=== PATIENT | male | born 1975 | race Caucasian/White ===

== ENCOUNTER 2017-06-01 10:21 | Emergency (ER) | payer MEDICARE ==
[2017-06-01 10:40] VITALS: TEMP 96.3; O2SAT 97
--- NOTE | 2017-06-01 10:56 | ED.PDOC ---
History of Present Illness - General Chief Complaint: Problem Stated Complaint: Unable to void, R low back discomfort Time Seen by Provider: 06/01/17 10:38 Source: patient Exam Limitations: clinical condition - hronic limitations with communication - History of Present Illness Initial Comments: the patient is a 41-year-old male presenting to the emergency room secondary to a feeling of mild right lower back discomfort with some associated feeling of the need to avoid but being unable to urinate much. No fever. Pain is mild to moderate at worst. He has had constipation issues in the past. No previous urinary tract infections. He does have some known kidney stones. He has not had to having lithotripsy before. He feels like he tries to [place] doesn't get much out. Bladder ultrasound by me here only showsapproximately 150 -200 cc. Timing/Duration: 4-6 hours Severity: mild Improving Factors: nothing Worsening Factors: nothing Associated Symptoms: denies symptoms Allergies/Adverse Reactions: Allergies Codeine Allergy (Verified 06/01/17 10:41) Home Medications: Ambulatory Orders NK [NK] 06/01/17 Review of Systems - Review of Systems Constitutional: States: no symptoms reported EENTM: States: no symptoms reported Respiratory: States: no symptoms reported Cardiology: States: no symptoms reported Gastrointestinal/Abdominal: States: no symptoms reported Genitourinary: States: dysuria, frequency Musculoskeletal: States: back pain - right lower Skin: States: no symptoms reported Neurological: States: see HPI - chronic changes only Endocrine: States: no symptoms reported Hematologic/Lymphatic: States: no symptoms reported All other Systems: No Change from Baseline Past Medical History (General) - Patient Medical History Hx Seizures: No Hx Stroke: No Hx Dementia: No Hx Asthma: No Hx of COPD: No Hx Cardiac Disorders: No Hx Congestive Heart Failure: No Hx Pacemaker: No Hx Hypertension: No Hx Thyroid Disease: No Hx Diabetes: No Hx Gastroesophageal Reflux: No Hx Renal Disease: No Hx Cancer: No Hx of HIV: No Hx Hepatitis C: No Hx MRSA: No Surgical History: no surgical history - Vaccination History Hx Tetanus, Diphtheria Vaccination: Yes Hx Influenza Vaccination: No Hx Pneumococcal Vaccination: No - Social History Hx Tobacco Use: No Hx Chewing Tobacco Use: No Hx Alcohol Use: No Hx Substance Use: No Hx Substance Use Treatment: No Hx Depression: No Hx Physical Abuse: No Hx Emotional Abuse: No Hx Suspected Abuse: No - Female History Patient : No Family Medical History - Family History Sister Hx Cardiac Disease: Yes Hx Family Diabetes: Yes Physical Exam - Physical Exam General Appearance: Alert, Comfortable, No apparent distress Eye Exam: bilateral normal Ears, Nose, Throat: normal ENT inspection, normal pharynx Neck: supple Respiratory: lungs clear, normal breath sounds, no respiratory distress, no accessory muscle use Cardiovascular/Chest: normal peripheral pulses, no edema, other - egular rate Peripheral Pulses: radial,right: 2+, radial,left: 2+ Gastrointestinal/Abdominal: non tender, soft Rectal Exam: deferred Back Exam: no CVA tenderness, no vertebral tenderness Extremity: normal range of motion - for the patient, no pedal edema, normal capillary refill Neurologic: water and gas helper II-XII nml as tested - at his baseline, alert, normal mood/ affect, oriented x 3, other - the patient does have chronic long-term deficits Skin Exam: normal color Comments: Vital Signs - 24 hr 06/01/17 06/01/17 06/01/17 10:30 11:58 12:40 Temperature 96.3 F L Pulse Rate [ 68 91 H 66 Left Radial] Respiratory 20 18 16 Rate Blood Pressure 152/105 134/87 137/89 [Left Arm] O2 Sat by Pulse 97 97 97 Oximetry Progress - Progress Progress: 06/01/17 12:48 the patient's a 41-year-old male presenting to the emergency room with discomfort from what is probably the passage of a very small kidney stone, most likely from the right. He is not having any back pain anymore. He was given a liter of IV fluids. His urine has a very small amount of blood. No obvious evidence of any infection. He needs to increase his fluid intake. Motrin and Tylenol can be used for discomfort if needed. He should follow-up with his primary care doctor on Monday for a repeat urinalysis and reevaluation. ER warnings were given for any acute worsening. - Results/Orders Results/Orders: Laboratory Tests 06/01/17 06/01/17 06/01/17 11:00 11:00 11:00 WBC 10.2 RBC 5.16 Hgb 16.1 Hct 45.5 MCV 88.2 MCH 31.2 H MCHC 35.3 RDW 12.8 Plt Count 262 MPV 8.8 Absolute Neuts (auto) 8.80 H Absolute Lymphs (auto) 0.90 L Absolute Monos (auto) 0.40 Absolute Eos (auto) 0.00 Absolute Basos (auto) 0.10 Neutrophils % 86.3 H Lymphocytes % 8.7 L Monocytes % 4.0 Eosinophils % 0.4 L Basophils % 0.6 Sodium 137 Potassium 3.8 Chloride 102 Carbon Dioxide 26 Anion Gap 12.8 BUN 13 Creatinine 0.94 BUN/Creatinine Ratio 13.8 Random Glucose 105 Serum Osmolality 274.3 L Calcium 9.3 Magnesium 2.2 Total Bilirubin 0.8 AST 19 ALT 23 Alkaline Phosphatase 53 Creatine Kinase 139 CK-MB (CK-2) 1.4 CK-MB (CK-2) % Not Reportable Troponin I < 0.02 Serum Total Protein 8.0 Albumin 4.7 Globulin 3.3 Albumin/Globulin Ratio 1.4 Total PSA 0.57 Urine Color Urine Appearance Urine pH Ur Specific [place] Urine Protein Urine Glucose (UA) Urine Ketones Urine Blood Urine Nitrite Urine Bilirubin Urine Urobilinogen Ur Leukocyte Esterase Urine RBC Urine WBC Ur Epithelial Cells Urine Bacteria 06/01/17 12:00 WBC RBC Hgb Hct MCV MCH MCHC RDW Plt Count MPV Absolute Neuts (auto) Absolute Lymphs (auto) Absolute Monos (auto) Absolute Eos (auto) Absolute Basos (auto) Neutrophils % Lymphocytes % Monocytes % Eosinophils % Basophils % Sodium Potassium Chloride Carbon Dioxide Anion Gap BUN Creatinine BUN/Creatinine Ratio Random Glucose Serum Osmolality Calcium Magnesium Total Bilirubin AST ALT Alkaline Phosphatase Creatine Kinase CK-MB (CK-2) CK-MB (CK-2) % Troponin I Serum Total Protein Albumin Globulin Albumin/Globulin Ratio Total PSA Urine Color Yellow Urine Appearance Clear Urine pH 6.5 Ur Specific [place] <= 1.005 Urine Protein Negative Urine Glucose (UA) Negative Urine Ketones Negative Urine Blood Moderate H Urine Nitrite Negative Urine Bilirubin Negative Urine Urobilinogen 0.2 Ur Leukocyte Esterase Negative Urine RBC 0-1 Urine WBC 0-1 Ur Epithelial Cells 0 Urine Bacteria Rare two-view abdomen shows small stones within the kidneys as well as a small stone on the right side of the bladder that could possibly be in thedistal ureter. Departure - Departure Clinical Impression: Dysuria Hematuria Qualifiers: Hematuria type: unspecified type Qualified Code(s): R31.9 - Hematuria, unspecified Disposition: Discharge to Home or Self Care Condition: Fair Departure Forms: ED Discharge - Pt. Copy, Patient Portal Self Enrollment Instructions: DI for Kidney Stones Activity: increase activity as tolerated Home Medications: Ambulatory Orders NK [NK] 06/01/17 Additional Instructions: the patient's a 41-year-old male presenting to the emergency room with discomfort from what is probably the passage of a very small kidney stone, most likely from the right. He is not having any back pain anymore. He was given a liter of IV fluids. His urine has a very small amount of blood. No obvious evidence of any infection. He needs to increase his fluid intake. Motrin and Tylenol can be used for discomfort if needed. He should follow-up with his primary care doctor on Monday for a repeat urinalysis and reevaluation. ER warnings were given for any acute worsening.
[2017-06-01] MEDS: SODIUM CHLORIDE 0.9% 1000ML 1,000 ML IVS ONE (11:09)
--- NOTE | 2017-06-01 11:37 | RAD ---
EXAM DESCRIPTION: Abdomen, 2 views CLINICAL HISTORY: Constipation. Right flank pain. Urinary retention. FINDINGS/ IMPRESSION: Bowel gas pattern is normal No organomegaly or obvious abdominal mass lesion A couple of punctate calcifications overlie the region of the right kidney possible renal stones. No calcification overlying the left kidney. There is a single calcification in the right hemipelvis which could be a phlebolith. Given the history of right flank pain this may represent a distal ureteral calculus, about 2 to 3 mm Electronically signed by: Elvis Carlson MD 06/01/2017 11:36 AM [facility]
[2017-06-01] MEDS: FUROSEMIDE INJ 20 MG/2 ML VIAL IV ONE (11:47)
[2017-06-01 13:24] VITALS: BP 125/86
== END 2017-06-01 13:15 | disposition home or self-care (01) ==
LOC: ER 10:21
DX: R30.0 Dysuria (principal); R31.9 Hematuria, unspecified; Z88.6 Allergy status to analgesic agent
CPT/HCPCS: 36415; 74010; 80053; 81001; 82550; 82553; 83735; 84484; 85025; G0103; J1940; J7030

== ENCOUNTER 2017-06-18 07:34 | Emergency (ER) | payer MEDICARE ==
[2017-06-18] MEDS ORDERED: SODIUM CHLORIDE 0.9% 1000ML 1,000 ML IVS ONE (08:31)
[2017-06-18] MEDS ORDERED: KETOROLAC TROMETHAMINE INJ 30 MG/ML VIAL IV ONE (08:31)
[2017-06-18] MEDS ORDERED: PHENAZOPYRIDINE HCL 200 MG TAB PO ONE (08:32)
[2017-06-18] MEDS ORDERED: OXYBUTYNIN CL 5 MG TAB PO ONE (08:33)
[2017-06-18 08:55] VITALS: TEMP 97.4
--- NOTE | 2017-06-18 08:55 | RAD ---
Procedure: XR ABDOMEN 1 VIEW (KUB) Exam Date: 06/18/2017 8:35 AM [employer] Ordering Provider: Jose Ruth Clinical Indication: hematuria, frequency since yesterday Comparison: June 01, 2017 Findings: Bowel gas pattern is non-obstructive. No pneumoperitoneum. There is moderate volume stool burden. No suspicious calcification. There is suggestion of mild subchondral sclerosis in the inferior bilateral SI joints mostly along the iliac side of the bone. Correlate for history of sacroiliitis. Impression: Nonobstructive bowel gas pattern. Electronically signed by: Brianna Chou MD 06/18/2017 8:54 AM [employer]INE[employer]
[2017-06-18] MEDS ORDERED: MAGNESIUM HYDROXIDE 30 ML UD PO ONE (09:04)
--- NOTE | 2017-06-18 09:56 | ED.PDOC ---
History of Present Illness - General Chief Complaint: Problem Stated Complaint: Burning/Frequency with Urination Time Seen by Provider: 06/18/17 07:36 Source: patient, family Exam Limitations: clinical condition - History of Present Illness Initial Comments: he patient is a 41-year-old male presenting to the emergency room secondary to urinary frequency and irritability for the last 12-24 hours. Over the last 6 months he has had several episodes of hematuria that it looked mostly like kidney stones being passed. The last was last month. He had a CT scan of little more than a year ago of the abdomen and pelvis that was reassuring but did show some renal stones. Urinalysis today shows some mild hematuria. Bladder ultrasound shows actually an empty bladder. No recent changes in medications. He was feeling normal yesterday morning. No recurrent urinary tract infections. No fever no back pain. Timing/Duration: 24 hours Severity: moderate Improving Factors: nothing Worsening Factors: nothing Allergies/Adverse Reactions: Allergies Codeine Allergy (Verified 06/01/17 10:41) Home Medications: Ambulatory Orders Oxybutynin Chloride 2.5 mg PO BID PRN #4 tab 06/18/17 Review of Systems - Review of Systems Constitutional: States: no symptoms reported EENTM: States: no symptoms reported Respiratory: States: no symptoms reported Cardiology: States: no symptoms reported Gastrointestinal/Abdominal: States: see HPI Genitourinary: States: see HPI, dysuria, frequency Musculoskeletal: States: no symptoms reported Skin: States: no symptoms reported Neurological: States: no symptoms reported Endocrine: States: no symptoms reported Hematologic/Lymphatic: States: no symptoms reported All other Systems: No Change from Baseline Past Medical History (General) - Patient Medical History Hx Seizures: No Hx Stroke: No Hx Dementia: No Hx Asthma: No Hx of COPD: No Hx Cardiac Disorders: No Hx Congestive Heart Failure: No Hx Pacemaker: No Hx Hypertension: No Hx Thyroid Disease: No Hx Diabetes: No Hx Gastroesophageal Reflux: No Hx Renal Disease: No Hx Cancer: No Hx of HIV: No Hx Hepatitis C: No Hx MRSA: No Surgical History: other - Vaccination History Hx Tetanus, Diphtheria Vaccination: No Hx Influenza Vaccination: No Hx Pneumococcal Vaccination: No - Social History Hx Tobacco Use: Yes Hx Chewing Tobacco Use: No Hx Alcohol Use: No Hx Substance Use: No Hx Substance Use Treatment: No Hx Depression: No Feels Threatened In Home Enviroment: No Feels Threatened In a Relationship: No Hx Physical Abuse: No Hx Emotional Abuse: No Hx Suspected Abuse: No - Female History Patient : No - Triage Comment ED Triage Comment: was in ER 06/01/17 for same s/s Family Medical History - Family History Sister Hx Cardiac Disease: Yes Hx Family Diabetes: Yes Physical Exam - Physical Exam General Appearance: Alert, Comfortable, No apparent distress Ears, Nose, Throat: hearing grossly normal, normal ENT inspection Neck: full range of motion, supple Respiratory: lungs clear, normal breath sounds, no respiratory distress, no accessory muscle use Cardiovascular/Chest: normal peripheral pulses, regular rate, rhythm, no edema Peripheral Pulses: radial,right: 2+, radial,left: 2+, dorsalis pedis,right: 2+, dorsalis pedis,left: 2+ Gastrointestinal/Abdominal: non tender, soft Rectal Exam: deferred Back Exam: normal inspection, no CVA tenderness, no vertebral tenderness Extremity: normal range of motion, non-tender, normal inspection, no pedal edema , normal capillary refill Neurologic: sap bi architect II-XII nml as tested, alert, normal mood/affect, oriented x 3 Skin Exam: normal color Comments: Vital Signs - 24 hr 06/18/17 06/18/17 07:47 08:54 Temperature 98.3 F 97.4 F L Pulse Rate [ 104 H Left Radial] Respiratory 18 20 Rate Blood Pressure 139/89 138/87 [Right Arm] O2 Sat by Pulse 97 99 Oximetry Progress - Progress Progress: 06/18/17 09:56 the patient's a 41-year-old male presenting with symptoms of urinary frequency and mild dysuria for the last 24 hours. He does have some known kidney stones and has passed kidney stones in the past. Urinalysis only shows hematuria which is consistent with the passage of another stone. He is not having any back pain. He is having significant bladder spasm and has responded well to Pyridium and some IV fluids along with a dose of Toradol. He needs to keep well-hydrated. He can take some [id number] Azo every 6 hours for the next day. Additionally if he needs it he will be written for oxybutynin 2.5 mg every 12 hours as needed for bladder spasms. He will only be written for 4 tablets. He needs to follow-up with a primary care doctor early next week and likely be set up with a urologist for further evaluation as he has had several episodes of urinary complaints over the last year. ER warnings were given. Urine culture is being done. Antibiotics are not warranted at this time. - Results/Orders Results/Orders: Laboratory Tests 06/18/17 07:42 Urine Color Yellow Urine Appearance Clear Urine pH 6.0 Ur Specific [place] >= 1.030 Urine Protein 100 H Urine Glucose (UA) Negative Urine Ketones Trace Urine Blood Large H Urine Nitrite Negative Urine Bilirubin Small H Urine Urobilinogen 4.0 H Ur Leukocyte Esterase Negative Urine RBC 10-20 H Urine WBC 0 Ur Epithelial Cells 1-3 Urine Bacteria 0 KUB shows a moderate amount of stool. Departure - Departure Clinical Impression: Bladder spasms Hematuria Qualifiers: Hematuria type: other microscopic Qualified Code(s): R31.29 - Other microscopic hematuria; R31.2 - Other microscopic hematuria Disposition: Discharge to Home or Self Care Departure Forms: ED Discharge - Pt. Copy, Patient Portal Self Enrollment Instructions: DI for Kidney Stones Diet: regular diet Activity: increase activity as tolerated Prescriptions: Oxybutynin Chloride 2.5 mg PO BID PRN #4 tab PRN Reason: Bladder Pain Or Spasms Home Medications: Ambulatory Orders Oxybutynin Chloride 2.5 mg PO BID PRN #4 tab 06/18/17 Additional Instructions: the patient's a 41-year-old male presenting with symptoms of urinary frequency and mild dysuria for the last 24 hours. He does have some known kidney stones and has passed kidney stones in the past. Urinalysis only shows hematuria which is consistent with the passage of another stone. He is not having any back pain. He is having significant bladder spasm and has responded well to Pyridium and some IV fluids along with a dose of Toradol. He needs to keep well-hydrated. He can take some [id number] Azo every 6 hours for the next day. Additionally if he needs it he will be written for oxybutynin 2.5 mg every 12 hours as needed for bladder spasms. He will only be written for 4 tablets. He needs to follow-up with a primary care doctor early next week and likely be set up with a urologist for further evaluation as he has had several episodes of urinary complaints over the last year. ER warnings were given. Urine culture is being done. Antibiotics are not warranted at this time.
[2017-06-18 10:18] VITALS: BP 137/88; O2SAT 96
== END 2017-06-18 10:18 | disposition home or self-care (01) ==
LOC: ER 07:34
DX: N32.89 Other specified disorders of bladder (principal); N20.0 Calculus of kidney; Z87.442 Personal history of urinary calculi; Z87.891 Personal history of nicotine dependence
CPT/HCPCS: 74000; 81001; J1885; J7030

== ENCOUNTER 2019-10-30 19:44 | Emergency (ER) | payer MEDICARE ==
[2019-10-30 19:59] VITALS: TEMP 97.9; O2SAT 99
[2019-10-30] MEDS ORDERED: TETANUS,DIPHTHERIA,PERTUSSIS 1 EA SYG IM ONE (20:00)
[2019-10-30] MEDS ORDERED: LIDOCAINE 1% W/ EPINEPHRINE 20 ML VIAL INJ ONE (20:00)
--- NOTE | 2019-10-30 20:07 | ED.PDOC ---
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 Unknown last tetanus. Had minimal bleeding initially that has now resolved. Denies pain or weakness to left leg. Allergies/Adverse Reactions: Allergies Codeine Allergy (Verified 06/01/17 10:41) Ibuprofen [From Motrin] Allergy (Verified 10/30/19 19:59) Home Medications: Ambulatory Orders Oxybutynin Chloride 2.5 mg PO BID PRN #4 tab 06/18/17 Review of Systems - Review of Systems Constitutional: Denies: chills, fever EENTM: Denies: nose congestion, throat pain Respiratory: Denies: cough, short of breath Cardiology: Denies: chest pain Gastrointestinal/Abdominal: Denies: abdominal pain, nausea, vomiting Musculoskeletal: Denies: back pain, joint pain, muscle pain Neurological: Denies: headache, paresthesia All other Systems: Reviewed and Negative Past Medical History (General) - Patient Medical History Hx Seizures: No Hx Stroke: No Hx Dementia: No Hx Asthma: No Hx of COPD: No Hx Cardiac Disorders: No Hx Congestive Heart Failure: No Hx Pacemaker: No Hx Hypertension: No Hx Thyroid Disease: No Hx Diabetes: No Hx Gastroesophageal Reflux: No Hx Renal Disease: No Hx Cancer: No Hx of HIV: No Hx Hepatitis C: No Hx MRSA: No Surgical History: other - Vaccination History Hx Tetanus, Diphtheria Vaccination: No Hx Influenza Vaccination: Yes Hx Pneumococcal Vaccination: No - Social History Hx Tobacco Use: Yes Hx Chewing Tobacco Use: No Hx Alcohol Use: Yes Hx Substance Use: No Hx Substance Use Treatment: No Hx Depression: No Hx Physical Abuse: No Hx Emotional Abuse: No Hx Suspected Abuse: No - Female History Patient : No Family Medical History - Family History Sister Hx Cardiac Disease: Yes Hx Family Diabetes: Yes Physical Exam - Physical Exam General Appearance: Alert, Comfortable, No apparent distress Neck: non-tender, full range of motion, supple Respiratory: chest non-tender, lungs clear, normal breath sounds, no respiratory distress Cardiovascular/Chest: regular rate, rhythm, no edema, no murmur Peripheral Pulses: dorsalis pedis,left: 2+, posterior tibialis,left: 2+ Gastrointestinal/Abdominal: non tender, soft, no pulsatile mass Extremity: normal range of motion, non-tender, no pedal edema, no calf tenderness Neurologic: no motor/sensory deficits, alert Skin Exam: rash - There is a 3 cm linera superficial laceration to left laterral mid thigh. no active bleeding. Procedures - Laceration/Wound Repair Left Lateral Thigh Wound Length (cm): 3 Wound's Depth, Shape: superficial, linear Wound Explored: clean Irrigated w/ Saline (cc's): 250 Betadine Prep?: No Anesthesia: Lidocaine w/ Epi Wound Repaired With: sutures Suture Size/Type: 4:0, prolene Number of Sutures: 4 Layer Closure?: No Sterile Dressing Applied?: Yes Progress: Tolerated well. No complications Departure - Departure Clinical Impression: Thigh laceration Qualifiers: Encounter type: initial encounter Laterality: left Qualified Code(s): S71.112A - Laceration without foreign body, left thigh, initial encounter Time of Disposition: 20:27 Disposition: Discharge to Home or Self Care Condition: Good Departure Forms: ED Discharge - Pt. Copy, Patient Portal Self Enrollment Instructions: DI for Laceration Repair Diet: resume usual diet Activity: increase activity as tolerated Home Medications: Ambulatory Orders Oxybutynin Chloride 2.5 mg PO BID PRN #4 tab 06/18/17 Comments: Keep wound clean and dry. Return for suture removal in 10-12 days
[2019-10-30 20:40] VITALS: BP 132/84
== END 2019-10-30 20:40 | disposition home or self-care (01) ==
LOC: ER 19:44
DX: S71.112A Laceration without foreign body, left thigh, initial encounter (principal); F17.200 Nicotine dependence, unspecified, uncomplicated; W26.8XXA Contact with other sharp object(s), not elsewhere classified, initial encounter; Y92.9 Unspecified place or not applicable

== ENCOUNTER 2020-02-08 13:00 | Emergency (ER) | payer MEDICARE ==
[2020-02-08] MEDS ORDERED: TETRACAINE HCL 0.5% OPHTH SOL 1 DROP ONE (13:10)
[2020-02-08] MEDS ORDERED: FLUORESCEIN SODIUM OPHTH STRIP ONE (13:10)
[2020-02-08] MEDS ORDERED: OPHTHALMIC SALT SOLUTION 120 ML BTTL ONE (13:11)
--- NOTE | 2020-02-08 13:20 | ED.PDOC ---
History of Present Illness - General Chief Complaint: Eye Problems Stated Complaint: right eye pain and redness Time Seen by Provider: 02/08/20 13:18 Source: patient, family - History of Present Illness Initial Comments: The patient is a 44-year-old male presented emergency room secondary to right eye discomfort secondary to having a foreign body headache yesterday evening while weed eating. Mild blurry vision. Mild photophobia. Right pupil is a little more constricted than the left. Palpable ocular pressures symmetrical. No proptosis. Fluorescein exam does show a small corneal abrasion without any foreign body at approximately 6:00. Tetracaine drops were used for numbing. No other injury. No clinical evidence of perforation of the eye Timing/Duration: other - 14 hours Severity: mild Improving Factors: nothing Worsening Factors: nothing Associated Symptoms: denies symptoms Allergies/Adverse Reactions: Allergies Codeine Allergy (Verified 02/08/20 13:13) Ibuprofen [From Motrin] Allergy (Verified 02/08/20 13:13) Home Medications: Ambulatory Orders Erythromycin Ophth Oint 1 inch RIGHT_EYE Q6HR #7 day 02/08/20 Review of Systems - Review of Systems Constitutional: States: no symptoms reported EENTM: States: see HPI Respiratory: States: no symptoms reported Cardiology: States: no symptoms reported Gastrointestinal/Abdominal: States: no symptoms reported Genitourinary: States: no symptoms reported Musculoskeletal: States: no symptoms reported Skin: States: no symptoms reported Neurological: States: no symptoms reported Endocrine: States: no symptoms reported All other Systems: No Change from Baseline Past Medical History (General) - Patient Medical History Hx Seizures: No Hx Stroke: No Hx Dementia: No Hx Asthma: No Hx of COPD: No Hx Cardiac Disorders: No Hx Congestive Heart Failure: No Hx Pacemaker: No Hx Hypertension: No Hx Thyroid Disease: No Hx Diabetes: No Hx Gastroesophageal Reflux: No Hx Renal Disease: No Hx Cancer: No Hx of HIV: No Hx Hepatitis C: No Hx MRSA: No - Vaccination History Hx Tetanus, Diphtheria Vaccination: No Hx Influenza Vaccination: Yes Hx Pneumococcal Vaccination: No - Social History Hx Tobacco Use: Yes Hx Chewing Tobacco Use: No Hx Alcohol Use: Yes Hx Substance Use: No Hx Substance Use Treatment: No Hx Depression: No Hx Physical Abuse: No Hx Emotional Abuse: No Hx Suspected Abuse: No - Female History Patient : No Family Medical History - Family History Sister Hx Cardiac Disease: Yes Hx Family Diabetes: Yes Physical Exam - Physical Exam General Appearance: Alert, Comfortable, No apparent distress Eye Exam: right other - See history of present illness, left normal Ears, Nose, Throat: normal pharynx Neck: full range of motion Respiratory: no respiratory distress, no accessory muscle use Cardiovascular/Chest: normal peripheral pulses, no edema Peripheral Pulses: radial,right: 2+, radial,left: 2+ Rectal Exam: deferred Extremity: non-tender, normal capillary refill 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 The patient be written for erythromycin ointment to be used and he can also tow picker some preservative-free saline drops to be used every couple of hours for the next 3 to 4 days. He needs to avoid wind weather outside or underneath a vent or a fan for the next few days. Motrin can also be used for discomfort. ER warnings are given. I do want him to follow back up with his primary care doctor in 4 or 5 days for repeat evaluation. chetna damico [id number] Departure - Departure Clinical Impression: Corneal abrasion Qualifiers: Encounter type: initial encounter Laterality: right Qualified Code(s): S05.01XA - Injury of conjunctiva and corneal abrasion without foreign body, right eye, initial encounter Disposition: Discharge to Home or Self Care Condition: Fair Departure Forms: ED Discharge - Pt. Copy, Patient Portal Self Enrollment Diet: regular diet Activity: increase activity as tolerated Prescriptions: Erythromycin Ophth Oint 1 inch RIGHT_EYE Q6HR #7 day Home Medications: Ambulatory Orders Erythromycin Ophth Oint 1 inch RIGHT_EYE Q6HR #7 day 02/08/20 Additional Instructions: The patient is a 44-year-old male presented to emergency room secondary to what appears to be a small corneal abrasion at 6:00 on the right eye. The patient be written for erythromycin ointment to be used and he can also tow picker some preservative-free saline drops to be used every couple of hours for the next 3 to 4 days. He needs to avoid wind weather outside or underneath a vent or a fan for the next few days. Motrin can also be used for discomfort. ER warnings are given. I do want him to follow back up with his primary care doctor in 4 or 5 days for repeat evaluation.
[2020-02-08 13:21] VITALS: BP 138/81; TEMP 96.7; O2SAT 99
== END 2020-02-08 13:35 | disposition home or self-care (01) ==
LOC: ER 13:00
DX: S05.01XA Injury of conjunctiva and corneal abrasion without foreign body, right eye, initial encounter (principal); Z87.891 Personal history of nicotine dependence; Y92.9 Unspecified place or not applicable

== ENCOUNTER 2020-04-12 18:31 | Emergency (ER) | payer MEDICARE ==
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
[2020-04-12] MEDS ORDERED: HYDROcodone 5MG/APAP 325MG 1 EA TAB PO ONE (18:59)
--- NOTE | 2020-04-12 19:07 | RAD ---
EXAM: Knee,Right Complete CLINICAL INDICATION: Right knee pain, patient fell COMPARISON: There is no previous study for comparison. FINDINGS: 3 views of the right knee reveal a fracture of the lateral tibial plateau which is depressed by up to 7 mm. No other fracture is seen. There is a small knee joint effusion containing a fat fluid level. There is no dislocation. IMPRESSION: Moderately displaced fracture of the lateral tibial plateau. Small lipohemarthrosis. Electronically signed by: Ang Lobato MD 04/12/2020 7:05 PM CDT
[2020-04-12] MEDS ORDERED: HYDROCOD/APAP 5/325 (ER DISP) #3 TAB PO ONE (19:08)
[2020-04-12 20:44] VITALS: O2SAT 97
[2020-04-12 20:49] VITALS: BP 141/90; TEMP 97.4
== END 2020-04-12 20:10 | disposition home or self-care (01) ==
LOC: ER 18:31
DX: S82.141A Displaced bicondylar fracture of right tibia, initial encounter for closed fracture (principal); Z88.5 Allergy status to narcotic agent; Z87.891 Personal history of nicotine dependence; Z88.6 Allergy status to analgesic agent; V83.7XXA Person on outside of special industrial vehicle injured in nontraffic accident, initial encounter; Y92.812 Truck as the place of occurrence of the external cause

== ENCOUNTER → 2020-04-16 | Outpatient (CLI) | payer MEDICARE ==
--- NOTE | 2020-04-17 08:12 | CT ---
EXAM DESCRIPTION: Lower Extremity CLINICAL HISTORY: 44 years Male, CLOSED FRACTURE OF TIBIAL PLATEAU RIGHT TECHNIQUE: This exam was performed according to our departmental dose-optimization program, which includes automated exposure control, adjustment of the mA and/or kV according to patient size and/or use of iterative reconstruction technique. COMPARISON: 04/12/2020 FINDINGS: Moderate right knee lipohemarthrosis. Benign fibroxanthomatous of the medial distal femur and proximal posterior tibia. Comminuted proximal right fibular fracture with a large anteriorly displaced fracture fragment measuring 1.5 cm. Redemonstrated comminuted intra-articular lateral tibial plateau fracture there is an intra-articular gap of 5 mm and a step off of 3 mm. There is a fracture planes extending medially undermining the tibial spine. No dislocation. No other fracture lucency identified. IMPRESSION: 1. Redemonstrated comminuted right lateral tibial plateau fracture. 2. Comminuted proximal fibular fracture. 3. Moderate lipohemarthrosis. Electronically signed by: James Rajan MD 04/17/2020 8:11 AM CDT
== END ==
LOC: CT 09:28
PROVIDERS: ATTEND Orthopaedic Surgery
DX: S82.101D Unspecified fracture of upper end of right tibia, subsequent encounter for closed fracture with routine healing (principal); S82.832D Other fracture of upper and lower end of left fibula, subsequent encounter for closed fracture with routine healing; M25.061 Hemarthrosis, right knee

== ENCOUNTER 2020-04-21 05:51 | Day surgery (SDC) | payer MEDICARE ==
--- NOTE | 2020-04-17 11:15 | RAD ---
EXAM DESCRIPTION: Chest x-ray,2 Views CLINICAL HISTORY: Surgery 04/21/20 COMPARISON: Previous 2 view chest x-ray June 29, 2011 TECHNIQUE: PA/lateral FINDINGS: Heart is prominent with normal pulmonary vascularity. No pleural effusion or pneumothorax. Lungs are clear with no consolidating infiltrate. Lateral view shows intact sternum and T-spine. IMPRESSION: No acute process is identified in the chest. Electronically signed by: Martín Thomas MD 04/17/2020 11:14 AM CDT
[~2020-04-21 05:51] MED LIST: LACTATED RINGERS 1,000 ML ONE; SODIUM CHL 0.9% 100ML MINI-BAG 100 ML IVPB ONE; ceFAZolin SODIUM 1 GM VIAL ONE
[2020-04-21] MEDS ORDERED: DEXAMETHASONE INJ 10 MG/ML VIAL IV ONE (05:52)
[2020-04-21] MEDS ORDERED: LIDOCAINE 1% 10 ML VIAL INJ ONE (05:52)
[2020-04-21] MEDS ORDERED: MAGNESIUM SULFATE INJ 1 GM/2 ML VIAL IVPB ONE (05:52)
[2020-04-21] MEDS ORDERED: PROPOFOL 200 MG/20 ML VIAL IV ONE (05:52)
[2020-04-21] MEDS ORDERED: ceFAZolin SODIUM 1 GM VIAL ONE (06:20)
[2020-04-21] MEDS ORDERED: VANCOMYCIN HCL INJ 1,000 MG VIAL IVPB ONE ×2 (06:20→06:51)
[2020-04-21] MEDS ORDERED: BUPIVACAINE LIPOSOME 13.3 MG/ML VIAL INJ ONE ×2 (06:21→06:51)
[2020-04-21] MEDS ORDERED: BUPIVACAINE 0.5% 30 ML VIAL INJ ONE ×2 (06:21→06:51)
[2020-04-21] MEDS ORDERED: KETAMINE HCL 100 MG/ML VIAL ONE (06:33)
[2020-04-21] MEDS ORDERED: DEXMEDETOMIDINE HCL 200 MCG/2 ML INJ IV ONE (06:33)
[2020-04-21] MEDS ORDERED: FAMOTIDINE INJ 10 MG/ML VIAL IV ONE (06:34)
[2020-04-21] MEDS ORDERED: fentaNYL CITRATE INJ 50 MCG/ML 5 ML AMP ONE (06:34)
[2020-04-21] MEDS ORDERED: MIDAZOLAM INJ 2 MG/2 ML VIAL ONE (06:34)
[2020-04-21] MEDS ORDERED: ceFAZolin SODIUM 1 GM VIAL IRRIG ONE (06:51)
[2020-04-21] MEDS ORDERED: HYDROcodone 5MG/APAP 325MG 1 EA TAB ONE (09:16)
[2020-04-21 12:49] VITALS: BP 120/71; TEMP 97.2; O2SAT 96
--- NOTE | 2020-04-22 20:51 | RAD ---
FL LESS THAN 1 HOUR HISTORY: 44 years Male RIGHT ORIF TIBIAL PLATEAU COMPARISON: None. 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 See procedure notes for further details. Fluoroscopy time: 172.1 seconds. Fluoroscopic images: 2. Electronically signed by: Avery Freed MD 04/22/2020 8:50 PM CDT
--- NOTE | 2020-04-29 10:05 | OP ---
DATE OF PROCEDURE: 04/21/20 PREOPERATIVE DIAGNOSIS: 1. Lateral tibial plateau fracture, right knee. POSTOPERATIVE DIAGNOSIS: 1. Lateral tibial plateau fracture, right knee. PROCEDURE: 1. Percutaneous fixation. SURGEON: Xu Phipps MD TRANSMISSION ASSEMBLER: Kb Florence CST, SA-C ANESTHESIA: General anesthesia. COMPLICATIONS: None. FINDINGS: Split lateral tibial plateau fracture. INDICATION: Omkar has a history of a fall and he had the acute onset of pain in the knee. Omkar and I discussed the risks, benefits and alternatives to operative therapy. Informed consent was obtained for the above procedure. PROCEDURE: The patient was brought to the Operating Room and placed in supine position. General anesthesia was induced. The patient's leg was sterilely prepped and draped. The fracture was reduced using percutaneous clamps. Once that had been achieved, three screws were placed across the fracture site from lateral to medial. The knee was stressed and there was no motion at the fracture site. The wounds were thoroughly irrigated and closed with Nylon suture. Sterile dressings were placed. The patient was awoken from anesthesia and taken to Recovery. POSTOPERATIVE PLAN: He will be non-weightbearing for likely about three months. He will followup with us in two days. #[id number] MTDD
== END 2020-04-21 10:25 | disposition home or self-care (01) ==
LOC: AMB 05:51
PROVIDERS: ATTEND Orthopaedic Surgery
DX: S82.141A Displaced bicondylar fracture of right tibia, initial encounter for closed fracture (principal)
CPT/HCPCS: 01390; 27532; 71046; 76000; 80048; 80307; 85025; 87070; 93005; J0690; J1100; J2250; J3010; J3370; J3475; J3490; J7050; J7120

== ENCOUNTER 2020-05-16 20:47 | Emergency (ER) | payer MEDICARE ==
[2020-05-16 21:19] VITALS: O2SAT 97
--- NOTE | 2020-05-16 21:38 | RAD ---
Indication: pain s/p fall. Patient age: 44 years. Patient gender: Male. Comparison: Right knee radiographs of 04/12/2020 Findings: Two views of the right knee. Status post screw fixation of the proximal tibia. Significantly improved anatomic alignment since prior radiograph of 04/12/2020. No new fracture identified. Impression: Status post screw fixation of the proximal tibia. Significantly improved anatomic alignment since prior radiograph of 04/12/2020. No new fracture identified. Dictated on: 05/16/2020 9:34 PM GREEN CHAINER Electronically signed by: Daisy Alvarado MD 05/16/2020 9:36 PM [facility]
--- NOTE | 2020-05-16 21:54 | ED.PDOC ---
History of Present Illness - General Chief Complaint: Lower Extremity Injury Stated Complaint: right knee pain Time Seen by Provider: 05/16/20 21:11 Source: patient, family Exam Limitations: no limitations Additional Information: 44M presents with right knee pain. Has history of proximal tibia fracture s/p repair with Dr. Phipps one month ago. Has been wearing knee immobilizer and elevating. Patient's mother states that he was on his leg more than usual today and has some increased swelling. He had a fall onto his right knee and heard a pop, he is concerned for new injury. No other complaints of injury. No weakness, numbness or tingling. - History of Present Illness Allergies/Adverse Reactions: Allergies Codeine Allergy (Verified 05/16/20 21:23) makes him go crazy Ibuprofen [From Motrin] Allergy (Verified 05/16/20 21:23) makes him go crazy Home Medications: Ambulatory Orders HYDROcodone 5MG/APAP 325MG [[place] 5/325] 1 tablet PO PRN PRN 04/17/20 Review of Systems - Review of Systems Constitutional: Denies: chills, fever, weakness EENTM: States: no symptoms reported Respiratory: States: no symptoms reported Cardiology: States: no symptoms reported Gastrointestinal/Abdominal: States: no symptoms reported Genitourinary: States: no symptoms reported Musculoskeletal: States: joint pain, joint swelling, muscle pain, muscle stiffness. Denies: neck pain Skin: States: no symptoms reported Neurological: Denies: paresthesia, tingling, weakness Endocrine: States: no symptoms reported Hematologic/Lymphatic: States: no symptoms reported All other Systems: Reviewed and Negative Past Medical History (General) - Patient Medical History Hx Seizures: No Hx Stroke: No Hx Dementia: No Hx Asthma: No Hx of COPD: No Hx Cardiac Disorders: No Hx Congestive Heart Failure: No Hx Pacemaker: No Hx Hypertension: No Hx Thyroid Disease: No Hx Diabetes: No Hx Gastroesophageal Reflux: No Hx Renal Disease: No Hx Cancer: No Hx of HIV: No Hx Hepatitis C: No Hx MRSA: No - Vaccination History Hx Tetanus, Diphtheria Vaccination: No Hx Influenza Vaccination: Yes Hx Pneumococcal Vaccination: No - Social History Hx Tobacco Use: Yes Hx Chewing Tobacco Use: No Hx Alcohol Use: Yes Hx Substance Use: No Hx Substance Use Treatment: No Hx Depression: No Hx Physical Abuse: No Hx Emotional Abuse: No Hx Suspected Abuse: No - Activities of Daily Living Hospice Agency (if applicable):: None - Female History Patient is a Female of Child Bearing Age (10 -59 yrs old): No Patient : No Family Medical History - Family History Sister Family History: Unknown Living Status: Unknown Hx Cardiac Disease: Yes Hx Family Diabetes: Yes Physical Exam - Physical Exam General Appearance: Comfortable, No apparent distress Cardiovascular/Respiratory: regular rate, rhythm Leg: swelling, other - Immobilizer to right knee, mild swelling diffusely to the RLE. 2+ DP/PT pulses, normal cap refill. mild TTP to right knee. ROM limited by pain Neuro/Tendon: normal sensation, normal motor functions, normal tendon functions, responds to pain, no evidence tendon injury Mental Status: alert, oriented x 3 Skin: normal color, warm/dry Progress - Progress Progress: 05/16/20 21:53 Patient reassessed, normal neurovascular exam. no new injury on plain film. okay to continue home pain regimen and follow up with Dr. Phipps as an outpatient. Home care instructions and return indications reviewed. Departure - Departure Clinical Impression: Contusion of right knee Qualifiers: Encounter type: initial encounter Qualified Code(s): S80.01XA - Contusion of right knee, initial encounter Time of Disposition: 21:53 Disposition: Discharge to Home or Self Care Condition: Excellent Departure Forms: ED Discharge - Pt. Copy, Patient Portal Self Enrollment Instructions: DI for Leg Pain, Knee Pain (DC) Diet: resume usual diet Activity: increase activity as tolerated Referrals: Xu Phipps MD [Active Staff] - 1-2 Weeks Home Medications: Ambulatory Orders HYDROcodone 5MG/APAP 325MG [[place] 5/325] 1 tablet PO PRN PRN 04/17/20
[2020-05-16 22:18] VITALS: BP 120/84; TEMP 97.7
== END 2020-05-16 22:05 | disposition home or self-care (01) ==
LOC: ER 20:47
DX: S80.01XA Contusion of right knee, initial encounter (principal); Z87.891 Personal history of nicotine dependence; Z88.5 Allergy status to narcotic agent; Z88.6 Allergy status to analgesic agent; W18.30XA Fall on same level, unspecified, initial encounter; Y92.9 Unspecified place or not applicable

== ENCOUNTER → 2020-06-05 | Outpatient (CLI) | payer MEDICARE ==
--- NOTE | 2020-06-06 11:59 | RAD ---
EXAM: Knee,Right 1 or 2 Views INDICATION: 44 years Male, CLOSED FRACTURE PROXIMAL TIBIA, LAT CONDYLE COMPARISON: 2 views of the right knee 05/16/2020 FINDINGS: 2 views of the right knee were performed. Stable fixation screws at proximal tibial fractures. Similar appearance of fracture lines at the proximal tibia when compared to the prior examination of 05/16/2020. Alignment is stable. No new fractures are identified. No joint dislocation. No destructive osseous lesion. IMPRESSION: Stable appearance of right proximal tibial fractures and fixation hardware when compared to the prior study of 05/16/2020. Electronically signed by: Nevin Steve MD 06/06/2020 11:57 AM [facility]
== END ==
LOC: RAD 09:17
PROVIDERS: ATTEND Orthopaedic Surgery
DX: S82.101D Unspecified fracture of upper end of right tibia, subsequent encounter for closed fracture with routine healing (principal); Z98.890 Other specified postprocedural states

== ENCOUNTER → 2020-06-15 | Outpatient (CLI) | payer MEDICARE ==
--- NOTE | 2020-06-16 11:39 | RAD ---
EXAM DESCRIPTION: Knee,Right Complete CLINICAL HISTORY: KNEE PAIN COMPARISON: 05 June 2020 TECHNIQUE: 3 views right FINDINGS: Exam demonstrates orthopedic repair of a medial tibial plateau fracture. 3 screws are seen to traverse the tibial plateaus. Alignment is unchanged the previous exam. No significant callus formation is yet evident. A fracture of the proximal fibula is also again noted and remains unchanged. IMPRESSION: ORIF right lateral tibial plateau fracture. Alignment remains unchanged the previous exam. A fracture of the proximal fibula is also again noted. Electronically signed by: Jose Garcia MD 06/16/2020 11:38 AM [facility]
== END ==
LOC: YCFC.O 16:08
PROVIDERS: ATTEND Nurse Practitioner Family
DX: S82.101D Unspecified fracture of upper end of right tibia, subsequent encounter for closed fracture with routine healing (principal); Z98.890 Other specified postprocedural states

== ENCOUNTER → 2020-06-29 | Outpatient (CLI) | payer MEDICARE ==
--- NOTE | 2020-06-29 08:43 | RAD ---
EXAM DESCRIPTION: Knee,Right 1 or 2 Views CLINICAL HISTORY: FRACTURE COMPARISON: 15 June 2020 TECHNIQUE: AP and lateral. FINDINGS: The exam reveals prior screw repair of a lateral tibial plateau fracture. A proximal fibular fractures also again noted. No significant callus formation is observed. IMPRESSION: ORIF right lateral tibial plateau fracture. No evidence of interval healing is observed. A fracture of the proximal fibula is also again noted. Electronically signed by: Jose Garcia MD 06/29/2020 8:42 AM [facility]
== END ==
LOC: RAD 07:33
PROVIDERS: ATTEND Orthopaedic Surgery
DX: S82.121D Displaced fracture of lateral condyle of right tibia, subsequent encounter for closed fracture with routine healing (principal); S82.832D Other fracture of upper and lower end of left fibula, subsequent encounter for closed fracture with routine healing; Z98.890 Other specified postprocedural states

== ENCOUNTER → 2020-07-24 | Outpatient (CLI) | payer MEDICARE ==
--- NOTE | 2020-07-24 14:36 | RAD ---
EXAM DESCRIPTION: Knee,Right 1 or 2 Views CLINICAL HISTORY: 44 years Male, S82.101D CLOSED FX OF TIBIAL PLATEAU COMPARISON: Right knee radiographs 06/29/2020 TECHNIQUE: 2 view radiograph of the right knee. IMPRESSION: No acute displaced fracture. No dislocation. Unchanged surgical screws traversing the tibial plateau. Lateral tibial plateau fracture is less conspicuous likely due to sclerosing from healing process. Unchanged proximal fibular fracture. Joint space is maintained. Mild patellofemoral arthrosis. No knee joint effusion. No radiographically apparent soft tissue abnormality. Electronically signed by: Justin Zambrano MD 07/24/2020 2:34 PM [facility]
== END ==
LOC: RAD 07:38
PROVIDERS: ATTEND Orthopaedic Surgery
DX: S82.101D Unspecified fracture of upper end of right tibia, subsequent encounter for closed fracture with routine healing (principal); S82.401D Unspecified fracture of shaft of right fibula, subsequent encounter for closed fracture with routine healing; M17.11 Unilateral primary osteoarthritis, right knee; Z98.890 Other specified postprocedural states